=== PATIENT | male | born 1960 | race Hispanic/Latino ===

== ENCOUNTER 2019-02-09 06:14 | Day surgery (SDC) | payer OTHER ==
[2019-02-05 10:15] VITALS: BMI 29.3
[2019-02-09] MEDS ORDERED: Iodixanol 320 MG/ML 200 ML BOTTLE IV ONE (06:58)
[2019-02-09] MEDS ORDERED: Iodixanol 320 mg/ml 150 ml Bottle IV ONE (06:58)
[2019-02-09] MEDS ORDERED: Lidocaine PF 2% (5 ml) Inj (For Cardiac Arrhy) ONE (06:58)
[2019-02-09] MEDS ORDERED: Nitroglycerin 50mg in D5W 50 MG/250 ML BOTTLE IV ONE (06:58)
[2019-02-09 07:05] LABS: BASO # 0.08 K/mm3 (0.0-2.0); BASO % 1.1 % (0.0-3.0); EOS # 0.2 (0.0-0.7); EOS % 2.6 % (1.5-5.0); HEMOGLOBIN 14.7 g/dL (14.0-18.0); LYMPH % 27.3 % (22.0-35.0); MEAN CELL VOLUME 92.7 fl (80.0-105.0); MEAN CORPUSCULAR HEMOGLOBIN 29.9 pg (25.0-35.0); MEAN CORPUSCULAR HGB CONC 32.3 g/dl (31.0-37.0); MEAN PLATELET VOLUME 10.7 fl (7.0-11.0); MONO # 0.7 (0.1-0.6); MONO % 9.8 % (1.0-6.0); RBC 4.91 10^6/uL (3.5-6.1); RED CELL DISTRIBUTION WIDTH 13.7 % (11.5-14.5); WHITE BLOOD COUNT 7.2 10^3/uL (4.5-11.0)
[2019-02-09 07:15] LABS: INR 1.28; PARTIAL THROMBOPLASTIN TIME 35.7 Seconds (26.9-38.3); PROTHROMBIN TIME 14.5 SECONDS (9.4-12.5)
[2019-02-09 07:16] LABS: BLOOD UREA NITROGEN 17 mg/dL (7-21); CALCIUM 8.9 mg/dL (8.4-10.5); GFR NON-AFRICAN AMERICAN > 60
[2019-02-09] MEDS ORDERED: Midazolam 2 MG/2 ML VIAL ONE ×2 (08:35→09:05)
[2019-02-09] MEDS ORDERED: Iodixanol 320 MG/ML 100 ML BOTTLE IV ONE ×2 (09:13→09:45)
[2019-02-09] MEDS ORDERED: Oxycodone/Acetaminophen 5/325 mg Tab PO PRN (11:30)
[2019-02-09] MEDS ORDERED: Sodium Chloride 0.45% 1,000 ML IV SCH (11:30)
[2019-02-09] MEDS ORDERED: Oxycodone/Acetaminophen 5/325 mg Tab ONE (12:59)
[2019-02-09 13:59] VITALS: TEMP 97.5; O2SAT 98
[2019-02-09 14:17] VITALS: BP 128/71; PULSE 64; RESP 18
--- NOTE | 2019-02-09 17:42 | NM ---
Date of service: 02/09/2019 PROCEDURE: Pre yttrium 99 treatment mapping HISTORY: PRE- YIttrum Treatment(Mapping) COMPARISON: None TECHNIQUE: 5.0 mCi technetium 99 M MAA administered intravenously. Examination performed calculi% lung shunting per institutional protocol. FINDINGS: Calculated lung shunting percentage 5.69%. IMPRESSION: Lung shunt fraction calculated at 5.69%
== END 2019-02-09 15:09 | disposition home or self-care (01) ==
LOC: SDSVAS 06:14
PROVIDERS: ATTEND Radiology Vascular & Interventional Radiology
DX: C22.0 Liver cell carcinoma (principal); K74.60 Unspecified cirrhosis of liver; K76.6 Portal hypertension; B18.2 Chronic viral hepatitis C; I10 Essential (primary) hypertension; M06.9 Rheumatoid arthritis, unspecified; F17.200 Nicotine dependence, unspecified, uncomplicated
CPT/HCPCS: 36415; 78291; 80048; 85025; 85610; 85730; 99152; 99153; C1760 ×2; C1769 ×6; C1887 ×2; C1894; J1644; J2250; J2405; J3010; J7030; Q9966; Q9967 ×2

== ENCOUNTER 2019-02-19 07:02 | Day surgery (SDC) | payer OTHER ==
[2019-02-18 07:04] VITALS: BMI 29.3
[2019-02-19 07:23] LABS: BASO # 0.08 K/mm3 (0.0-2.0); BASO % 1.2 % (0.0-3.0); EOS # 0.2 (0.0-0.7); EOS % 2.9 % (1.5-5.0); HEMOGLOBIN 14.2 g/dL (14.0-18.0); LYMPH # 1.5 (1.2-3.4); LYMPH % 23.3 % (22.0-35.0); MEAN CORPUSCULAR HEMOGLOBIN 29.9 pg (25.0-35.0); MEAN PLATELET VOLUME 10.2 fl (7.0-11.0); MONO # 0.9 (0.1-0.6); MONO % 14.2 % (1.0-6.0); RBC 4.75 10^6/uL (3.5-6.1); RED CELL DISTRIBUTION WIDTH 13.5 % (11.5-14.5); WHITE BLOOD COUNT 6.6 10^3/uL (4.5-11.0)
[2019-02-19 07:28] LABS: INR 1.18; PARTIAL THROMBOPLASTIN TIME 38.3 Seconds (26.9-38.3); PROTHROMBIN TIME 13.3 SECONDS (9.4-12.5)
[2019-02-19 07:29] LABS: BLOOD UREA NITROGEN 15 mg/dL (7-21); CALCIUM 9.1 mg/dL (8.4-10.5); GFR NON-AFRICAN AMERICAN > 60
[2019-02-19] MEDS ORDERED: Lidocaine PF 2% (5 ml) Inj (For Cardiac Arrhy) ONE (07:45)
[2019-02-19] MEDS ORDERED: Iodixanol 320 MG/ML 100 ML BOTTLE IV ONE (07:45)
[2019-02-19] MEDS ORDERED: Iodixanol 320 MG/ML 200 ML BOTTLE IV ONE (07:45)
[2019-02-19 08:08] VITALS: PULSE 65
[2019-02-19] MEDS ORDERED: Nitroglycerin 50mg in D5W 50 MG/250 ML BOTTLE IV ONE (08:22)
[2019-02-19 09:02] LABS: MEAN CELL VOLUME 91.8 fl (80.0-105.0)
[2019-02-19] MEDS ORDERED: Midazolam 2 MG/2 ML VIAL ONE ×2 (09:37→09:49)
[2019-02-19 12:22] VITALS: TEMP 97.5
[2019-02-19 12:50] VITALS: RESP 16
[2019-02-19 13:28] VITALS: O2SAT 98
[2019-02-19] MEDS ORDERED: Oxycodone/Acetaminophen 5/325 mg Tab PO PRN (13:36)
[2019-02-19] MEDS ORDERED: Sodium Chloride 0.45% 1,000 ML IV SCH (13:45)
[2019-02-19 13:54] VITALS: BP 107/64
--- NOTE | 2019-02-19 20:12 | VASCULAR ---
Date of service: 02/19/2019 PROCEDURE: 1. Hepatic Y 90 radioembolization HISTORY: Hepatitis-C cirrhosis. Hepatoma left lobe PHYSICIAN(S): Christ Antoine M.D. TECHNIQUE: The relative risks and indications of the procedure were explained to the patient and consent obtained. The patient was hydrated prior to the procedure and the appropriate labs drawn. The patient was placed supine on the arteriogram table and the right groin prepped and draped in the usual sterile fashion. Conscious sedation and monitoring were provided throughout the procedure by a nurse. Under ultrasound guidance the right common femoral artery was punctured with a micropuncture set. Exchange is made for a 5 Croatian sheath. A 5 Croatian sauce 1 catheter was placed in the origin of the celiac axis. A microcatheter was advanced through the celiac axis and sub selectively placed in the left hepatic artery beyond the right gastric artery and segment 4A vessels. Position was confirmed with injection of contrast and DSA arteriography. Y 90 radial embolization was performed through the microcatheter. The appropriate dose was delivered by Dr. Antoine and Dr. Sanchez. The catheter micro catheter and sheath were removed hemostasis obtained with a Perclose device . The patient tolerated the procedure well. FINDINGS: IMPRESSION: 1.Subselective Y 90 radioembolization in the left lobe of the liver as described above
== END 2019-02-19 14:33 | disposition home or self-care (01) ==
LOC: SDSVAS 07:02
PROVIDERS: ATTEND Radiology Vascular & Interventional Radiology
DX: C22.0 Liver cell carcinoma (principal); B19.20 Unspecified viral hepatitis C without hepatic coma; K74.60 Unspecified cirrhosis of liver
CPT/HCPCS: 36247; 36248; 36415; 37243; 79445; 80048; 85025; 85610; 85730; 99152; 99153; C1760; C1769 ×2; C1887 ×2; C1894; C2616; J1644; J2250; J2405; J3010; J7030; Q9966; Q9967